=== PATIENT | female | born 1975 | race Asian ===

== ENCOUNTER 2023-11-25 18:04 | Emergency (ER) | payer BC, SELFPAY ==
[2023-11-25 18:12] VITALS: BP 129/88
[2023-11-25 18:38] LABS: COVID-19 Antigen Negative (Negative)
--- NOTE | 2023-11-25 19:44 | ED.GENMED ---
History of Present Illness
General
Chief Complaint: Cold/Flu/URI Symptoms
Time Seen by Provider: 11/25/23 19:43
History of Present Illness
History of Present Illness:
HPI: The patient presents with 3 days of URI/bronchitis type of symptoms. She thought she was wheezing earlier. She used to vape but no longer smokes. She had some shortness of breath but currently feels well. She was concerned because she had a
positive COVID test at home and came in here for further evaluation.
EXAM:
GENERAL: Well appearing in no distress
HEENT: Moist oral mucosa
CARDIOVASCULAR: No murmurs, normal heart rate, regular rhythm, No chest wall tenderness
PULMONARY: No respiratory distress, breath sounds are fairly clear and equal with no wheeze but there may be some occasional scattered rales but this is very minimal
ABDOMEN: Soft with no peritoneal signs, no tenderness
NEUROLOGIC: Excellent strength all extremities, no coordination deficits
PSYCHIATRIC: Appropriate mental status, normal insight and judgement
EXTREMITIES: Nontender, no edema, moves all extremities equally
SKIN: No rash, no lesions
TIME OF INITIAL ENCOUNTER: 8 PM
NUMBER AND COMPLEXITY OF PROBLEMS ADDRESSED AT THE ENCOUNTER
� Chronic conditions affecting care: Diabetes
� Acute Exacerbation and/or Progression of Chronic Illness: This is an acute problem
� Differential Diagnosis includes: Viral syndrome, pneumonia, bronchitis
AMOUNT AND/OR COMPLEXITY OF DATA TO BE REVIEWED AND ANALYZED
� I performed an independent evaluation of and my interpretation is:
EKG:
CT:
X-rays: Chest x-ray negative
Laboratory Studies: COVID-negative, flu negative
Other:
� Review of other/old records: CBC from March 2022 was unremarkable
� Clinical information was obtained by an independent historian: None needed
� Prescriptions/Medications Considered but not given: We did talk briefly about Paxlovid/Lagevrio however at this point I do not feel this is necessary
� Further testing considered but not performed:
RISK OF COMPLICATIONS AND/OR MORBIDITY OR MORTALITY OF PATIENT MANAGEMENT
� Social determinants of health affecting care: Lives at home
� Discussion with other providers: None needed
� Escalation of care including admission/observation vs risk of discharge considered: The patient did have a positive COVID test earlier today but is negative here. She very well could have COVID but I just recommend supportive
care. She is very well-appearing with normal chest x-ray and sat of 98% on room air
Past History
Past History
ED Past Medical History: None
ED Past Surgical History: Cholecystectomy, , Urological and Other (hernia)
Patient has exhibited threatening behavior?: No
Social History
Tobacco: Smoker
Alcohol: Occasional
Drug: None
Personal:
Living: with family
Employment: Employed ([employer])
Family History
Family History: Other
Phy Exam
Physical Exam
Physical Exam:
See HPI
Course
Orders/Labs/Results
Orders:
Orders
11/25/23 18:14
CR Chest - 2 Views Urgent
Comment:
Reason For Exam: congestion
11/25/23 18:18
COVID-19 Antigen Urgent
Source: Nasal Swab
Influenza A+B Rapid Molecular Urgent
[facility] Source: Nasal Swab
Specimen Description:
Vital Signs
Initial and Last Documented VS:
Initial Vital Signs
Temp Pulse Resp BP Pulse Ox
99.7 F 98 20 129/88 98
11/25/23 18:12 11/25/23 18:12 11/25/23 18:12 11/25/23 18:12 11/25/23 18:12
Last Documented Vital Signs
Temp Pulse Resp BP Pulse Ox
99.7 F 98 20 129/88 98
11/25/23 18:12 11/25/23 18:12 11/25/23 18:12 11/25/23 18:12 11/25/23 19:58
*Critical Care Note
Total Time (30-74mins, 75-104mins- exclusive of procedures): Not Applicable
ED Attending Note
-
Portions of this chart may have been created with voice recognition software.� Occasional wrong word or��sound alike� substitutions may have occurred due to the inherent limitations of voice recognition software.
Discharge Plan
Departure
Patient Disposition: Home (Routine Discharge)
Date of Disposition: 11/25/23
Time of Disposition: 20:07
Patient with high blood pressure during this ER visit?: Yes
Discharge Problem:
Acute viral syndrome
Instructions: Viral Syndrome (DC), BLOOD PRESSURE
Prescriptions:
No Action
acetaminophen [Tylenol Extra Strength] 500 MG tablet
1,000 mg PO Q6HPRN PRN (Reason: pain)
naproxen sodium [Aleve] 220 MG tablet
220 mg PO BID Qty: 60 0RF
Rx Instructions:
get over the counter- take for 30 days
oxycodone-acetaminophen 5 MG/325 MG tablet
1 tab PO Q8HPRN PRN (Reason: pain) Qty: 35 0RF
prednisone 50 MG tablet
50 mg PO DAILY Qty: 4 0RF
doxycycline hyclate 100 MG tablet
100 mg PO BID Qty: 13 0RF
terbinafine HCl 15 GM cream
1 applic TP BID Qty: 30 0RF
Rx Instructions:
apply to bilateral feet twice a day for 2 weeks.
ondansetron 4 mg tablet,disintegrating
4 mg PO TIDPRN PRN (Reason: nausea/vomiting) Qty: 20 0RF
Activity Restrictions/Additional Instructions:
I recommend Tylenol and Motrin for symptoms. Return here if worse. The COVID test here and flu test are both negative. Chest x-ray is normal.
Interventions
Interventions:
*Risk Screen - Suicide Last Done: 11/25/23 18:12
*General Assessment Last Done: 11/25/23 18:12
*Neglect/Abuse Screening Last Done: 11/25/23 18:12
ED- Fall Risk Assessment Last Done: 11/25/23 19:58
ED- Pulmonary Assessment Last Done: 11/25/23 19:58
Discharge Date and Time
Print Language: BARBADIAN
[2023-11-25 20:25] VITALS: BP 121/71
== END 2023-11-25 20:30 | disposition home or self-care (01) ==
LOC: EMR 18:04
PROVIDERS: Emergency Medicine; EMERGENCY PHYSICIAN Emergency Medicine; FAMILY PHYSICIAN Nurse Practitioner Family
DX: B34.9 Viral infection, unspecified (principal); Z11.52 Encounter for screening for COVID-19; R03.0 Elevated blood-pressure reading, without diagnosis of hypertension; Z87.891 Personal history of nicotine dependence; Z90.49 Acquired absence of other specified parts of digestive tract
CPT/HCPCS: 99283; 71046; 87502; 87811

== ENCOUNTER → 2024-04-30 12:29 | Outpatient (REF) | payer BC, SELFPAY | LOC: WDC 12:29 | PROVIDERS: ATTENDING PHYSICIAN Nurse Practitioner Family | DX: Z12.31 Encounter for screening mammogram for malignant neoplasm of breast (principal) | CPT/HCPCS: 77063; 77067 ==

== ENCOUNTER → 2024-09-24 11:40 | Outpatient (REF) | payer BC, SELFPAY | LOC: RAD 11:40 | PROVIDERS: ATTENDING PHYSICIAN Nurse Practitioner | DX: M25.561 Pain in right knee (principal) | CPT/HCPCS: 73564 ==

== ENCOUNTER → 2025-04-22 09:51 | Outpatient (REF) | payer BC, SELFPAY | LOC: EMG 09:51 | PROVIDERS: ATTENDING PHYSICIAN Nurse Practitioner Family | DX: G62.9 Polyneuropathy, unspecified (principal); R20.0 Anesthesia of skin | CPT/HCPCS: 95886; 95911 ==

== ENCOUNTER → 2025-05-04 12:59 | Outpatient (REF) | payer BC, SELFPAY | LOC: WDC 12:59 | PROVIDERS: ATTENDING PHYSICIAN Nurse Practitioner Family | DX: Z12.31 Encounter for screening mammogram for malignant neoplasm of breast (principal) | CPT/HCPCS: 77063; 77067 ==